=== PATIENT | female | born 1960 | race Caucasian/White ===

== ENCOUNTER 2024-01-07 07:34 | Inpatient (IN) | payer OTHER, MEDICAID ==
[2024-01-07 09:34] LABS: #Basophils 0.08 10x3/uL (0.0-0.2); #Eosinphils 0.13 10x3/uL (0.0-0.5); #Monocytes 1.38 10x3/uL (0.0-1.1); #Neutrophils 6.44 10x3/uL (1.5-8.4); %Basophils 0.8 % (0.0-2.0); %Eosinophils 1.3 % (0.0-6.0); %Lymphocytes 19.5 % (18.0-47.0); %Monocytes 13.7 % (0.0-10.0); %Neutrophils 64.1 % (40.0-75.0); Hematocrit 45.6 % (34.9-44.5); Hemoglobin 15.7 g/dL (12.0-15.5); Mean Corpuscular HGB CONC 34.4 g/dL (32.0-36.0); Mean Corpuscular Hemoglobin 31.5 pg (27.0-33.0); Mean Corpuscular Volume 91.6 fL (81.6-98.3); Mean Platelet Volume 8.8 fL (7.4-10.4); Platelet Count 315 10x3/uL (150-450); Red Blood Cell (RBC) Count 4.98 10x6/uL (3.90-5.03); White Blood Cell (WBC) Count 10.1 10x3/uL (3.5-10.5)
[2024-01-07 09:45] LABS: Anion Gap 20 mmol/L (10-20); BUN (Urea Nitrogen) 18 mg/dL (9.8-20.1); Calc. Creatinine Clearance 79 mL/min (70-130); Calcium 9.3 mg/dL (7.8-10.44); Carbon Dioxide 26 mmol/L (23-31); Chloride 97 mmol/L (98-107); Estimated GFR 66; Glucose 115 mg/dL (80-115); Potassium 3.9 mmol/L (3.5-5.1); Sodium 139 mmol/L (136-145)
[2024-01-07] MEDS ORDERED: Ketorolac Tromethamine 30 MG (1 mL) VIAL ONE (10:03)
[2024-01-07] MEDS ORDERED: Acetaminophen 500 MG TAB ONE (10:04)
[2024-01-07] MEDS ORDERED: Bupivacaine/Epinephrine 0.25% 30 ML VIAL ONE ×2 (13:07→13:22)
[2024-01-07] MEDS ORDERED: Midazolam HCl 2 mg/2 ml Vial ONE (13:07)
[2024-01-07] MEDS ORDERED: fentaNYL 50 mcg/mL 1 mL Vial ONE (13:08)
[2024-01-07] MEDS ORDERED: Lidocaine 1% w/Epinephrine 1:200K 30 ML VIAL ONE (13:34)
[2024-01-07] MEDS ORDERED: PROPOFOL 20 ML ONE ×2 (13:43→16:55)
[2024-01-07] MEDS ORDERED: Lidocaine 2% PF 5 ML VIAL ONE (13:44)
[2024-01-07] MEDS ORDERED: Rocuronium Bromide 10 MG/ML (10ML VIAL) ONE (13:45)
[2024-01-07] MEDS ORDERED: Famotidine/PF 20 mg/2ml Vial ONE (13:50)
[2024-01-07] MEDS ORDERED: ceFOXitin 1 GM VIAL ONE ×2 (13:57→15:50)
[2024-01-07 14:30] LABS: Hemoglobin A1c 5.2 % (4.0-6.0)
[2024-01-07] MEDS ORDERED: Fentanyl 250 MCG/5 ML VIAL ONE (14:55)
[2024-01-07 18:00] VITALS: BMI 32.8
[2024-01-07] MEDS ORDERED: Promethazine HCl 25 MG/ML VIAL IM PRN (18:45)
[2024-01-07] MEDS ORDERED: Albuterol 200 PUFF (6.7GM INHALER) INH PRN (18:45)
[2024-01-07] MEDS ORDERED: hydrALAZINE 20 MG/ML VIAL SLOW IVP PRN (18:45)
[2024-01-07] MEDS ORDERED: Ipratropium/Albuterol 3 ML NEB NEB PRN (18:45)
[2024-01-07] MEDS ORDERED: Ondansetron PF 4 MG/2 ML Vial IVP PRN (18:45)
[2024-01-07] MEDS: Ketorolac Tromethamine 30 MG (1 mL) VIAL IVP SCH (20:14)
[2024-01-07] MEDS: Morphine 4 MG/ML VIAL SLOW IVP PRN (20:15)
[2024-01-07] MEDS: D5 1/2 NS w/20 mEq KCL 1,000 ML IV SCH (20:15)
[2024-01-07] MEDS ORDERED: Famotidine/PF 20 mg/2ml Vial SLOW IVP PRN (21:00)
[2024-01-07] MEDS: Famotidine 20 MG TAB PO SCH (22:17)
[2024-01-07] MEDS: Ipratropium/Albuterol 3 ML NEB NEB SCH (23:55)
[2024-01-08 06:59] LABS: #Basophils 0.02 10x3/uL (0.0-0.2); #Monocytes 1.14 10x3/uL (0.0-1.1); #Neutrophils 10.74 10x3/uL (1.5-8.4); %Basophils 0.2 % (0.0-2.0); %Lymphocytes 6.6 % (18.0-47.0); %Monocytes 8.9 % (0.0-10.0); %Neutrophils 83.9 % (40.0-75.0); Hematocrit 38.2 % (34.9-44.5); Hemoglobin 13.3 g/dL (12.0-15.5); Mean Corpuscular HGB CONC 34.8 g/dL (32.0-36.0); Mean Corpuscular Hemoglobin 32.4 pg (27.0-33.0); Mean Corpuscular Volume 93.2 fL (81.6-98.3); Mean Platelet Volume 9.6 fL (7.4-10.4); Platelet Count 241 10x3/uL (150-450); RBC Distribution Width 12.9 % (11.5-14.5); White Blood Cell (WBC) Count 12.8 10x3/uL (3.5-10.5)
[2024-01-08] MEDS: DULoxetine 30 MG CAP PO SCH (09:32)
[2024-01-08] MEDS: HYDROcodone/Acetaminophen 7.5/325 mg Tablet PO PRN (09:40)
[2024-01-08] MEDS: FLUoxetine HCl 20 MG CAP PO SCH (09:41)
[2024-01-08] MEDS: Amlodipine 10 MG TAB PO SCH (09:42)
[2024-01-08] MEDS: Rosuvastatin 20 MG TAB PO SCH (09:43)
[2024-01-08] MEDS: Enoxaparin 40 MG (0.4 mL) SYRINGE SC SCH (09:43)
[2024-01-08] MEDS: Losartan 25 MG TAB PO SCH (09:43)
[2024-01-08 10:06] LABS: Anion Gap 14 mmol/L (10-20); BUN (Urea Nitrogen) 14 mg/dL (9.8-20.1); Calc. Creatinine Clearance 105 mL/min (70-130); Calcium 8.3 mg/dL (7.8-10.44); Carbon Dioxide 24 mmol/L (23-31); Chloride 98 mmol/L (98-107); Estimated GFR 89; Glucose 151 mg/dL (80-115); Potassium 4.2 mmol/L (3.5-5.1); Sodium 132 mmol/L (136-145)
[2024-01-08] MEDS: FLU (Fluarix Triv) TS24-25(6MOS UP)/PF 45 MCG/0.5 ML Syringe IM ONE (11:51)
[2024-01-08] MEDS: hydrOXYzine 25 MG TAB PO PRN (12:43)
[2024-01-08] MEDS: Mometasone 100 MCG/PUFF (1 INHALER) INH SCH (13:30)
[2024-01-08] MEDS: Acetaminophen 500 MG TAB PO SCH (15:39)
[2024-01-08] MEDS: Sodium Chloride 0.9% 1,000 ML IV SCH (15:57)
[2024-01-08] MEDS: Temazepam 15 MG CAP PO PRN (20:08)
[2024-01-08 23:25] VITALS: TEMP 98.4
[2024-01-09] MEDS: Morphine 2 MG/ML VIAL SLOW IVP PRN (03:01)
[2024-01-09 08:12] VITALS: BP 117/71
== END 2024-01-09 11:25 | disposition home or self-care (01) | DRG 331 ==
LOC: CSHTELE 08:25 → INTOOBSV 08:25 → OBSVTOIN 08:25 → CSHTELE 14:16
PROVIDERS: ADMIT Specialist; ATTEND Specialist
PROC: 0DTN4ZZ Resection of Sigmoid Colon, Percutaneous Endoscopic Approach (ICD-10-PCS; principal; 2024-01-07)
PROC: 0DQP4ZZ Repair Rectum, Percutaneous Endoscopic Approach (ICD-10-PCS; 2024-01-07)
PROC: 3E033XZ Introduction of Vasopressor into Peripheral Vein, Percutaneous Approach (ICD-10-PCS; 2024-01-07)
DX: K62.3 Rectal prolapse (principal); I10 Essential (primary) hypertension; F32.A Depression, unspecified; J44.9 Chronic obstructive pulmonary disease, unspecified; G47.00 Insomnia, unspecified; K64.4 Residual hemorrhoidal skin tags; F41.9 Anxiety disorder, unspecified; R25.1 Tremor, unspecified; Z79.899 Other long term (current) drug therapy; Z98.51 Tubal ligation status; Z98.890 Other specified postprocedural states
CPT/HCPCS: 36415; 71045; 80048; 83036; 85025; 88307; 90656; 93005; 93010; 94640; 94762; A4314; A4649; J0694; J1650; J1885; J2001; J2250; J2272; J2704; J3010; J3480; J3490; J7030; J7620